=== PATIENT | male | born 1955 | race Caucasian/White ===

== ENCOUNTER 2017-10-26 14:29 | Inpatient (IN) | payer SELFPAY ==
[~2017-10-26] VITALS: Ht 172.7 cm; Wt 162.4 kg
[2017-10-26] MEDS ORDERED: SODIUM CHLORIDE 0.9% 1000ML 1,000 ML ONE (15:11)
[2017-10-26 15:49] LABS: BASOPHILS # (AUTO) 0.1 (0.0-0.1); BASOPHILS % 0.7 % (0.0-1.0); EOSINOPHILS # (AUTO) 0.2 (0.0-0.4); EOSINOPHILS % 2.2 % (0.0-6.0); HEMATOCRIT 41.6 % (38.2-49.6); HEMOGLOBIN 13.2 g/dL (14.0-18.0); MEAN CORPUSCULAR HEMOGLOBIN 28.8 pg (28-32); MEAN CORPUSCULAR HGB CONC 31.7 g/dL (31-35); MEAN CORPUSCULAR VOLUME 90.8 fL (81-99); MONOCYTES # (AUTO) 0.7 (0.2-0.8); MONOCYTES % 7.3 % (4.4-11.3); NEUTROPHILS % 66.3 % (38.7-80.0); PLATELET COUNT 163 x10e3/uL (140-360); RED BLOOD COUNT 4.58 x10e6/uL (4.3-5.7); RED CELL DISTRIBUTION WIDTH 15.4 % (11.7-14.4)
--- NOTE | 2017-10-26 15:52 | Diagnostic Imaging Report ---
Exam: Head CT without contrast History: Drowsiness, weakness Comparison studies: None Technique: Axial images were obtained from the skull base to the vertex. Coronal and sagittal images reconstructed from the axial data. Intravenous contrast: None Findings: Scalp: No abnormalities. Bones: No fractures, blastic or lytic lesions. Brain sulci: Appropriate for age. Ventricles: Normal in size and configuration. No hydrocephalus. Extra-axial spaces: No masses, no fluid collection. Parenchyma: No abnormal densities. No masses, acute hemorrhage, acute or chronic vascular insults. Sellar/suprasellar region: No abnormalities. Craniocervical junction: Patent foramen magnum. No Chiari one malformation. Incidental findings: Atherosclerotic calcifications in the carotid siphons. IMPRESSION: No acute intracranial abnormalities. Signed by: Dr. Kuldip Trivedi M.D. on 10/26/2017 3:48 PM
[2017-10-26 15:57] LABS: ABG HCO3 37 mmol/L (23-28); ABG PCO2 78 mmHg (41-51); ABG PH 7.28 (7.31-7.41); ABG PO2 78 mmHg (80-105)
[2017-10-26 16:00] LABS: INR 1.14; PROTHROMBIN TIME 13.7 seconds (11.9-14.5)
[2017-10-26 16:01] LABS: PARTIAL THROMBOPLASTIN TIME 26.3 seconds (23.8-35.5)
[2017-10-26 16:05] LABS: ALBUMIN 2.8 g/dL (3.5-5.0); ALBUMIN/GLOBULIN RATIO 0.7 (0.8-2.0); ANION GAP 10.9 mmol/L (8-16); CALCIUM 9.3 mg/dL (8.4-10.2); CREATININE, SERUM 1.47 mg/dL (0.72-1.25); POTASSIUM 4.9 mmol/L (3.5-5.1)
--- NOTE | 2017-10-26 16:10 | Diagnostic Imaging Report ---
PROCEDURE: A single AP view of the chest. COMPARISON: None. INDICATIONS: WEAKNESS, ELEVATED BLOOD SUGAR FINDINGS: Exam limited by soft tissue attenuation, likely from large body habitus. Lines/tubes: None. Lungs: Mildly hypoinflated lungs. Minimal atelectatic changes in the lung bases. No consolidation or pulmonary edema.. Pleura: There is no pleural effusion or pneumothorax. Likely eventration of the right hemidiaphragm. Heart and mediastinum: Prominent cardiac silhouette, which may be partly due to AP projection. Central pulmonary vascular crowding, likely due to the low lung volumes. Bones: No acute bony abnormality. IMPRESSION: 1. mildly hypoinflated lungs. Prominent cardiac silhouette, which may be partly due to AP projection and central vascular crowding due to low lung volumes. No consolidation or pleural effusion. Bharathi Price M.D. Dictated by: Bharathi Price M.D. on 10/26/2017 at 16:11 Electronically approved by: Bharathi Price M.D. on 10/26/2017 at 16:11
[2017-10-26 16:14] LABS: CREATINE KINASE MB 6.8 ng/mL (0-5.0)
[2017-10-26] MEDS ORDERED: NALOXONE HCL INJ 0.4 MG/ML AMP IV ONE (16:15)
[2017-10-26] MEDS ORDERED: SODIUM CHLORIDE 0.9% 1000ML 1,000 ML IV ONE (16:15)
[2017-10-26] MEDS ORDERED: ALBUTEROL/IPRATROPIUM 3 ML NEB NEB ONE (16:15)
[2017-10-26] MEDS ORDERED: INSULIN REGULAR, HUMAN 100 UNIT/1 ML 3ML VIAL IV ONE (16:15)
[2017-10-26] MEDS ORDERED: HYDRALAZINE HCL 20 MG/ML VIAL IV ONE (16:15)
[2017-10-26] MEDS ORDERED: SODIUM CHLORIDE 0.9% 1000ML 1,000 ML IV SCH (16:22)
[2017-10-26] MEDS ORDERED: SODIUM CHLORIDE FLUSH 10 ML SYR INJ PRN (16:30)
[2017-10-26 16:43] LABS: CHOL/HDL RATIO 4.6 (3.9-4.7); MAGNESIUM 1.8 MG/DL (1.3-2.1); PHOSPHORUS 4.1 MG/DL (2.3-4.7)
--- OUTSIDE RECORDS SUMMARY | 2017-10-26 16:44 | XMS REPORT ---
Author [facility] Address Unknown Phone Unavailable Care Team Providers Care Rotary Drier Name Role Phone LIZZETH CHUCHO Unavailable Unavailable Problems This patient has no known problems. Allergies, Adverse Reactions, Alerts This patient has no known allergies or adverse reactions. Medications This patient has no known medications. Encounters Start Date/Time End Date/Time Encounter Type Admission Type Attending [facility] Care Department Encounter ID 2017-10-26 12:38:28 2017-10-26 12:38:28 Outpatient [facility] [id number] 2017-10-26 00:00:00 2017-10-26 00:00:00 Outpatient [facility] [id number] 2017-10-07 16:10:53 2017-10-07 16:10:53 Emergency [facility] [id number] 2017-10-07 13:55:59 2017-10-07 13:55:59 Emergency [facility] [id number] 2017-07-23 00:00:00 2017-07-23 00:00:00 Outpatient [facility] [id number] 2017-06-24 08:13:06 2017-06-24 08:13:06 Outpatient [facility] [id number] 2017-06-23 00:00:00 2017-06-23 00:00:00 Outpatient [facility] [id number] 2017-06-09 00:00:00 2017-06-09 00:00:00 Outpatient [facility] [id number] 2017-06-01 09:28:59 2017-06-01 09:28:59 Outpatient [facility] [id number] 2017-05-22 02:58:32 2017-05-22 02:58:32 Emergency [facility] [id number] 2017-05-22 02:23:38 2017-05-22 02:23:38 Emergency [facility] [id number] 2017-05-15 09:09:29 2017-05-15 09:09:29 Outpatient [facility] [id number] 2017-05-14 00:00:00 2017-05-14 00:00:00 Outpatient [facility] [id number] 2017-05-14 00:00:00 2017-05-14 00:00:00 Outpatient [facility] [id number] 2017-04-30 08:39:59 2017-04-30 08:39:59 Outpatient [facility] [id number] 2017-04-30 07:10:57 2017-04-30 07:10:57 Outpatient [facility] [id number] 2017-04-30 00:00:00 2017-04-30 00:00:00 Outpatient [facility] [id number] 2017-04-30 00:00:00 2017-04-30 00:00:00 Outpatient [facility] [id number] 2017-04-23 08:22:20 2017-04-23 08:22:20 Outpatient [facility] [id number] 2017-04-23 00:00:00 2017-04-23 00:00:00 Outpatient [facility] [id number] 2017-04-23 00:00:00 2017-04-23 00:00:00 Outpatient [facility] [id number] 2017-04-23 00:00:00 2017-04-23 00:00:00 Outpatient [facility] [id number] 2017-04-23 00:00:00 2017-04-23 00:00:00 Outpatient [facility] [id number] 2017-04-22 00:00:00 2017-04-22 00:00:00 Outpatient [facility] [id number] 2017-04-20 08:01:35 2017-04-20 08:01:35 Outpatient [facility] [id number] 2017-04-13 10:29:27 2017-04-13 10:29:27 Outpatient [facility] [id number] 2017-03-31 08:01:25 2017-03-31 08:01:25 Outpatient [facility] [id number] 2017-03-26 08:05:31 2017-03-26 08:05:31 Outpatient [facility] [id number] 2017-03-23 08:25:05 2017-03-23 08:25:05 Outpatient [facility] [id number] 2017-03-09 08:24:29 2017-03-09 08:24:29 Outpatient [facility] [id number] 2017-03-05 08:45:52 2017-03-05 08:45:52 Outpatient [facility] [id number] 2017-03-05 07:43:16 2017-03-05 07:43:16 Outpatient [facility] [id number] 2017-02-26 00:00:00 2017-02-26 00:00:00 Outpatient [facility] [id number] 2017-02-23 11:02:09 2017-02-23 11:02:09 Outpatient [facility] [id number] 2017-02-23 08:40:26 2017-02-23 08:40:26 Outpatient [facility] [id number] 2017-02-11 00:00:00 2017-02-11 00:00:00 Outpatient [facility] [id number] 2017-02-10 09:48:28 2017-02-10 09:48:28 Outpatient [facility] [id number] 2017-02-01 00:00:00 2017-02-01 00:00:00 Outpatient [facility] [id number] 2017-01-21 10:04:23 2017-01-21 10:04:23 Outpatient [facility] [id number] 2017-01-14 11:04:20 2017-01-14 11:04:20 Outpatient [facility] [id number] Results Test Description Test Time Test Comments Text Results Atomic Results Result Comments CHEST SINGLE (PORTABLE) [place] [address] Patient Name: GLORIA RAJAN MR #: [id number] : 1955 Age/Sex: 62/M Req #: [id number] Adm Physician: Ordered by: CHUCHO MOREAU MD Report #: [id number] Location: ER Room/Bed: Procedure: [id number] DX/CHEST SINGLE (PORTABLE) Exam Date: 10/26/17 Exam Time: 1530 REPORT STATUS: Signed PROCEDURE: A single AP view of the chest. COMPARISON: None. INDICATIONS: WEAKNESS, ELEVATED BLOOD SUGAR FINDINGS: Exam limited by soft tissue attenuation, likely from large body habitus. Lines/tubes: None. Lungs: Mildly hypoinflated lungs. Minimal atelectatic changes in the lung bases. No consolidation or pulmonary edema.. Pleura: There is no pleural effusion or pneumothorax. Likely eventration of the right hemidiaphragm. Heart and mediastinum: Prominent cardiac silhouette, which may be partly due to AP projection. Central pulmonary vascular crowding, likely due to the low lung volumes. Bones: No acute bony abnormality. IMPRESSION: 1. mildly hypoinflated lungs. Prominent cardiac silhouette, which may be partly due to AP projection and central vascular crowding due to low lung volumes. No consolidation or pleural effusion. Abby Price M.D. Dictated by: Abby Price M.D. on 10/26/2017 at 16:11 Electronically approved by: Abby Price M.D. on 10/26/2017 at 16:11 Dictated By: ABBY PRICE MD 161 Transcribed By: PETR on 10/26/17 1611 COPY TO: CHUCHO MOREAU MD CT BRAIN WO [place] [address] Patient Name: GLORIA RAJAN MR #: [id number] : 1955 Age/Sex: 62/M Req #: [id number] Adm Physician: Ordered by: CHUCHO MOREAU MD Report #: [id number] Location: ER Room/Bed: Procedure: [id number] CT/CT BRAIN WO Exam Date: 10/26/17 Exam Time: 1518 REPORT STATUS: Signed Exam: Head CT without contrast History: Drowsiness, weakness Comparison studies: None Technique: Axial images were obtained from the skull base to the vertex. Coronal and sagittal images reconstructed from the axial data. Intravenous contrast: None Findings: Scalp: No abnormalities. Bones: No fractures, blastic or lytic lesions. Brain sulci: Appropriate for age. Ventricles: Normal in size and configuration. No hydrocephalus. Extra-axial spaces: No masses, no fluid collection. Parenchyma: No abnormal densities. No masses, acute hemorrhage, acute or chronic vascular insults. Sellar/suprasellar region: No abnormalities. Craniocervical junction: Patent foramen magnum. No Chiari one malformation. Incidental findings: Atherosclerotic calcifications in the carotid siphons. IMPRESSION: No acute intracranial abnormalities. Signed by: Dr. Mikey Trivedi M.D. on 10/26/2017 3:48 PM Dictated By: MIKEY TRIVEDI MD 1548 Transcribed By: MIR on 10/26/17 1548 COPY TO: CHUCHO MOREAU MD
[2017-10-26] MEDS ORDERED: SPIRONOLACTONE25 MG PO (16:50)
[2017-10-26] MEDS ORDERED: VENTOLIN HFA18 GM INH (16:50)
[2017-10-26] MEDS ORDERED: LASIX40 MG PO (16:50)
[2017-10-26] MEDS ORDERED: PREVACID15 M1 (16:50)
[2017-10-26] MEDS ORDERED: SYNTHROID100 MCG PO (16:50)
[2017-10-26] MEDS ORDERED: METOPROLOL SUCC25 MG (16:50)
[2017-10-26] MEDS ORDERED: GABAPENTIN300 MG PO (16:50)
[2017-10-26] MEDS ORDERED: HUMULIN 70100 UNIT/1 (16:50)
[2017-10-26 17:03] LABS: THYROID STIMULATING HORMONE 3.579 uIU/mL (0.350-4.940)
[2017-10-26 17:40] VITALS: BP 160/91
[2017-10-26 17:52] VITALS: BP 152/89
[2017-10-26 17:57] VITALS: BP 160/91
[2017-10-26] MEDS ORDERED: DEXTROSE 50% SYRINGE 50 ML IV PRN (18:30)
[2017-10-26] MEDS: INSULIN REGULAR, HUMAN 100 UNIT/1 ML 3ML VIAL SQ SCH (20:51)
[2017-10-26] MEDS ORDERED: LIPITOR20 MG (21:23)
[2017-10-26] MEDS ORDERED: ASPIR 8181 MG (21:26)
[2017-10-26] MEDS ORDERED: FUROSEMIDE INJ 10 MG/ML 4 ML VIAL IV ONE (22:15)
[2017-10-26] MEDS: PIPER-TAZ 3.375 GM 50 ML IV SCH (22:15)
[2017-10-26] MEDS ORDERED: FUROSEMIDE INJ 10 MG/ML 10 ML VIAL ONE (22:19)
[2017-10-26] MEDS ORDERED: VANCOMYCIN 1GM/NS 250 ML 250 ML IV ONE (22:30)
[2017-10-26 23:02] LABS: ABG PCO2 78 mmHg (41-51)
[2017-10-26 23:03] LABS: ABG HCO3 39 mmol/L (23-28); ABG PO2 118 mmHg (80-105)
[2017-10-26 23:47] LABS: AMPHETAMINES SCREEN,URINE NEGATIVE (NEGATIVE); BENZODIAZEPINES SCREEN,URINE NEGATIVE (NEGATIVE); PHENCYCLIDINE SCREEN,URINE NEGATIVE (NEGATIVE)
[2017-10-27] VITALS (72 sets, daily range): BP systolic 100–165; BP diastolic 39–88
[2017-10-27 01:39] LABS: ABG PCO2 89 mmHg (41-51); ABG PH 7.27 (7.31-7.41)
[2017-10-27 01:40] LABS: ABG HCO3 41 mmol/L (23-28); ABG PO2 98 mmHg (80-105)
[2017-10-27] MEDS: INSULIN REGULAR, HUMAN 100 UNIT/1 ML 3ML VIAL SQ SCH ×3 (02:18→17:13)
[2017-10-27 02:27] LABS: HEMATOCRIT 41.7 % (38.2-49.6); HEMOGLOBIN 13.2 g/dL (14.0-18.0); MEAN CORPUSCULAR HEMOGLOBIN 28.6 pg (28-32); MEAN CORPUSCULAR HGB CONC 31.7 g/dL (31-35); MEAN CORPUSCULAR VOLUME 90.3 fL (81-99); PLATELET COUNT 191 x10e3/uL (140-360); RED BLOOD COUNT 4.62 x10e6/uL (4.3-5.7); RED CELL DISTRIBUTION WIDTH 15.2 % (11.7-14.4)
[2017-10-27 02:41] LABS: INR 1.11; PROTHROMBIN TIME 13.5 seconds (11.9-14.5)
[2017-10-27 02:42] LABS: PARTIAL THROMBOPLASTIN TIME 28.2 seconds (23.8-35.5)
[2017-10-27 02:51] LABS: ALANINE AMINOTRANSFERASE 19 IU/L (0-55); ALBUMIN 2.7 g/dL (3.5-5.0); ALBUMIN/GLOBULIN RATIO 0.6 (0.8-2.0); ALKALINE PHOSPHATASE 75 IU/L (40-150); ANION GAP 12.8 mmol/L (8-16); BLOOD UREA NITROGEN 24 mg/dL (7-26); BUN/CREATININE RATIO 20 (6-25); CALCIUM 9.3 mg/dL (8.4-10.2); CARBON DIOXIDE 37 mmol/L (22-29); CHLORIDE 100 mmol/L (98-107); CREATININE, SERUM 1.21 mg/dL (0.72-1.25); EST GLOMERULAR FILTRATION RATE > 60 ML/MIN (60-); GLUCOSE 178 mg/dL (74-118); POTASSIUM 4.8 mmol/L (3.5-5.1)
[2017-10-27 02:55] LABS: SODIUM 145 mmol/L (136-145)
[2017-10-27] MEDS ORDERED: PROPOFOL IV EMULSION 10 MG/ML 50 ML VIAL IV PRN (03:30)
[2017-10-27] MEDS ORDERED: PROPOFOL IV EMULSION 10MG/ML 100 ML ONE ×2 (03:34→05:46)
[2017-10-27] MEDS ORDERED: NOREPINEPHRINE BITARTRATE/ NS 250 ML ONE (04:09)
[2017-10-27] MEDS ORDERED: SODIUM CHLORIDE 0.9% 1000ML 1,000 ML ONE (04:10)
--- NOTE | 2017-10-27 04:18 | Diagnostic Imaging Report ---
EXAM: CHEST SINGLE (PORTABLE), AP 1 view INDICATION: Status post intubation COMPARISON: AP view of the chest October 26, 2017 at 1532 hours FINDINGS: LINES/TUBES: Endotracheal tube terminates 4 cm above the kelli LUNGS: Stable appearance of the lungs with vascular congestion. PLEURA: No effusions or pneumothorax. HEART AND MEDIASTINUM: Stable appearance. BONES AND SOFT TISSUES: No acute findings. IMPRESSION: Interval placement of endotracheal tube, otherwise no interval change in appearance of the chest. Signed by: Dr. Maris Ramos M.D. on 10/27/2017 4:14 AM
[2017-10-27] MEDS ORDERED: FENTANYL CITRATE INJ 2,000 MCG in SODIUM CHLORIDE 0.9% 250ML 210 ML IV PRN (04:30)
[2017-10-27] MEDS ORDERED: NOREPINEPHRINE BITARTRATE/ NS 250 ML IV PRN (04:30)
[2017-10-27 04:52] LABS: ABG PH 7.44 (7.31-7.41)
[2017-10-27 04:53] LABS: ABG HCO3 40 mmol/L (23-28); ABG PCO2 59 mmHg (41-51); ABG PO2 109 mmHg (80-105)
[2017-10-27] MEDS: PIPER-TAZ 3.375 GM 50 ML IV SCH ×3 (06:00→21:20)
[2017-10-27] MEDS: LEVOTHYROXINE SODIUM 100 MCG TAB PO SCH (06:00)
[2017-10-27] MEDS ORDERED: VANCOMYCIN 1GM/NS 250 ML 250 ML ONE (06:58)
[2017-10-27] MEDS ORDERED: PROPOFOL IV EMULSION 10MG/ML 100 ML IV PRN (07:30)
--- NOTE | 2017-10-27 07:51 | Diagnostic Imaging Report ---
PROCEDURE: CHEST XRAY LINE PLACEMENT COMPARISON: Earlier 10/27/2017. INDICATIONS: PICC LINE PLACEMENT FINDINGS: Endotracheal tube is unchanged in position. Interval placement of a right upper extremity PICC. The tip projects over the expected region of the superior cavoatrial junction. Lung volumes remain low with pulmonary venous congestion. No new consolidation. No acute osseous abnormality. CONCLUSION: Interval placement of a right upper extremity PICC, appropriately positioned as above. Otherwise stable chest relative to 10/27/2017 at 0352 hours. Dictated by: Kuldip Britt M.D. on 10/27/2017 at 7:51 Electronically approved by: Kuldip Britt M.D. on 10/27/2017 at 7:51
[2017-10-27] MEDS: MIDAZOLAM HCL 25 MG in SODIUM CHLORIDE 0.9% 50ML 45 ML IV PRN ×3 (08:14→19:00)
[2017-10-27] MEDS ORDERED: GABAPENTIN 300 MG CAP PO SCH (09:00)
[2017-10-27 09:32] LABS: MAGNESIUM 1.6 MG/DL (1.3-2.1); PHOSPHORUS 4.1 MG/DL (2.3-4.7)
--- NOTE | 2017-10-27 09:57 | Consultation ---
DATE OF CONSULTATION: October 27, 2017 CARDIOLOGY CONSULTATION REASON FOR CONSULTATION: CHF. HPI: This is a 62-year-old morbidly obese male that presented with confusion. According to the medical record and the ER report and the bedside nurse, he was at his regular appointment at the [facility], but was found sleepy in the lobby. They checked his blood sugar and found out it was 536. He was sent over here for evaluation. In the ER, he was confused, combative. They did an ABG and found out the CO2 was in the 80s. He was intubated to protect the airway. Blood pressure was also low. He was started on Levophed drip and transferred to the ICU for vent management. He is intubated and sedated, and not able to follow any commands or verbalize any need. Initial troponin was negative. EKG showed normal sinus rhythm with no S/T abnormalities. The BNP was 69. PAST MEDICAL HISTORY: Hypertension, diabetes, uncontrolled, COPD, CHF, PA, hyperlipidemia, morbid obesity, pressure ulcer on the sacrum and on the left heel, and noncompliant. PAST SURGICAL HISTORY: Hernia repair. FAMILY HISTORY: Positive for hypertension and diabetes. SOCIAL HISTORY: Unable to obtain. According to the bedside nurse, he lives at home by himself and uses home oxygen. MEDICATIONS: See med list. ALLERGIES: HE IS ALLERGIC TO PENICILLIN AND LOSARTAN. REVIEW OF SYSTEMS: Unable to obtain. He is intubated and sedated. PHYSICAL EXAMINATION VITAL SIGNS: Temperature 99.5, heart rate 76, blood pressure 116/72, respirations 30, oxygen saturation 99% on mechanical ventilator. GENERAL: He is morbidly obese, intubated and sedated. HEENT: Mucous membrane moist. NECK: Supple. LUNGS: Bilateral with decreased breath sounds. CARDIOVASCULAR: S1 and S2 present. ABDOMEN: Soft. NEUROLOGICAL: He is sedated. EXTREMITIES: Bilateral lower with trace edema. LABS: Sodium 145, potassium 4.8, chloride 100, CO2 37, BUN 24, creatinine 1.21, glucose 178. White blood cell 10, hemoglobin 13.2, hematocrit 41.7, and platelets 191,000. PTT 13.5, PTT 28.2 and INR 1.11. IMPRESSION 1. Respiratory failure. 2. Chronic obstructive pulmonary disease exacerbation. 3. Uncontrolled diabetes. 4. Fever. 5. Possible congestive heart failure. 6. Pressure ulcer on the sacrum. 7. Obesity. 8. Hypothyroidism. 9. Noncompliant. ASSESSMENT AND PLAN 1. His BNP is 69. He has no clinical symptoms of congestive heart failure. Will go ahead and get an echocardiogram to assess the left ventricular and the valve function. 2. Continue vent management per pulmonology. 3. His blood pressure has been stable, and he has been off Levophed drip. 4. Will continue glucose control. 5. His blood pressure and heart rate are stable. 6. Resume home medications. Further cardiac workup pending clinical course. Thank you for this consultation. DICTATED BY MARIAN BLOOM NP Job#: [id number] GRETEL
[2017-10-27] MEDS ORDERED: HYDROMORPHONE 20MG/ NS 100ML IV PRN (10:30)
[2017-10-27] MEDS ORDERED: FUROSEMIDE INJ 10 MG/ML 4 ML VIAL IV ONE (10:35)
[2017-10-27] MEDS: HYDROMORPHONE 100 ML IV PRN (11:22)
--- NOTE | 2017-10-27 17:22 | Diagnostic Imaging Report ---
PROCEDURE:X-RAY ABDOMEN - KUB COMPARISON:Chest x-ray 10/27/2017 7:39 am INDICATIONS:STATUS POST NASOGASTRIC TUBE PLACEMENT FINDINGS: Partially visualized endotracheal tube. Additional tube is seen coiled in the mid thoracic esophagus. Limited penetration of the abdomen. There are no dilated loops of bowel to suggest obstruction. There are no masses or abnormal calcifications. There is no evidence of free air. No acute osseous abnormalities are present. CONCLUSION: NG tube coiled in the midesophagus. Dictated by: Zach Adkins M.D. on 10/27/2017 at 17:22 Electronically approved by: Zach Adkins M.D. on 10/27/2017 at 17:22
[2017-10-27] MEDS ORDERED: ETOMIDATE 40 MG/ 20ML VIAL IV ONE (18:13)
[2017-10-27] MEDS ORDERED: SUCCINYLCHOLINE 200 MG/10 ML SYR ONE (18:13)
--- NOTE | 2017-10-27 18:16 | Diagnostic Imaging Report ---
PROCEDURE:X-RAY ABDOMEN - KUB COMPARISON:None. INDICATIONS:NGT PLACEMENT FINDINGS: NG tube is seen in the stomach. Diffuse soft tissue attenuation abdomen. There are no dilated loops of bowel to suggest obstruction. There are no masses or abnormal calcifications. There is no evidence of free air. No acute osseous abnormalities are present. CONCLUSION: NG tube is seen in the stomach. Dictated by: Zach Adkins M.D. on 10/27/2017 at 18:16 Electronically approved by: Zach Adkins M.D. on 10/27/2017 at 18:16
[2017-10-27] MEDS: ALBUTEROL/IPRATROPIUM 3 ML NEB NEB PRN (19:45)
[2017-10-27] MEDS ORDERED: ATROPINE SULFATE 0.1 MG/ML 10ML SYR ONE (19:53)
[2017-10-28] VITALS (73 sets, daily range): BP systolic 105–158; BP diastolic 61–122
[2017-10-28] MEDS: HYDROMORPHONE 100 ML IV PRN ×2 (01:30→22:18)
[2017-10-28] MEDS: MIDAZOLAM HCL 25 MG in SODIUM CHLORIDE 0.9% 50ML 45 ML IV PRN (01:30)
[2017-10-28] MEDS: INSULIN REGULAR, HUMAN 100 UNIT/1 ML 3ML VIAL SQ SCH ×4 (04:59→18:00)
[2017-10-28] MEDS: LEVOTHYROXINE SODIUM 100 MCG TAB PO SCH (04:59)
[2017-10-28] MEDS: PIPER-TAZ 3.375 GM 50 ML IV SCH ×3 (05:00→21:19)
--- NOTE | 2017-10-28 05:28 | Diagnostic Imaging Report ---
EXAM: CHEST SINGLE (PORTABLE), AP 1 view INDICATION: Intubated COMPARISON: AP view of the chest October 27, 2017 FINDINGS: LINES/TUBES: Stable position of endotracheal tube and right approach PICC. A nasal/orogastric tube courses below the diaphragm. LUNGS: Stable appearance of the lungs. PLEURA: No effusions or pneumothorax. HEART AND MEDIASTINUM: Stable BONES AND SOFT TISSUES: No acute findings. IMPRESSION: No interval change. Signed by: Dr. Maris Ramos M.D. on 10/28/2017 5:24 AM
[2017-10-28 05:34] LABS: BASOPHILS % 0.3 % (0.0-1.0); EOSINOPHILS # (AUTO) 0.3 (0.0-0.4); HEMATOCRIT 39.8 % (38.2-49.6); HEMOGLOBIN 12.3 g/dL (14.0-18.0); LYMPHOCYTES # (AUTO) 1.9 (1.0-3.2); LYMPHOCYTES % 22.3 % (18.0-39.1); MEAN CORPUSCULAR HEMOGLOBIN 28.6 pg (28-32); MEAN CORPUSCULAR HGB CONC 30.9 g/dL (31-35); MEAN CORPUSCULAR VOLUME 92.6 fL (81-99); MONOCYTES # (AUTO) 0.6 (0.2-0.8); MONOCYTES % 7.2 % (4.4-11.3); NEUTROPHILS # (AUTO) 5.6 (2.1-6.9); NEUTROPHILS % 64.9 % (38.7-80.0); PLATELET COUNT 160 x10e3/uL (140-360); RED CELL DISTRIBUTION WIDTH 15.8 % (11.7-14.4)
[2017-10-28 05:56] LABS: ALBUMIN 2.2 g/dL (3.5-5.0); ALBUMIN/GLOBULIN RATIO 0.6 (0.8-2.0); ANION GAP 11.1 mmol/L (8-16); CALCIUM 8.4 mg/dL (8.4-10.2); CREATININE, SERUM 1.63 mg/dL (0.72-1.25); POTASSIUM 4.1 mmol/L (3.5-5.1)
[2017-10-28] MEDS: VANCOMYCIN 1GM/NS 250 ML 250 ML IV SCH (09:34)
[2017-10-28 10:48] LABS: ABG HCO3 34 mmol/L (23-28); ABG PCO2 66 mmHg (41-51); ABG PH 7.33 (7.31-7.41); ABG PO2 55 mmHg (80-105)
[2017-10-28] MEDS: DEXMEDETOMIDINE HCL 200 MCG in SODIUM CHLORIDE 0.9% 50ML 48 ML IV PRN ×3 (12:07→23:34)
[2017-10-28] MEDS: SODIUM CHLORIDE 0.9% 1000ML 1,000 ML IV SCH (12:08)
[2017-10-28] MEDS ORDERED: ACETAMINOPHEN 325 MG/10 ML UDC NG PRN (13:30)
[2017-10-28] MEDS ORDERED: ACETAMINOPHEN 1000 MG/100 ML IV PRN (13:30)
[2017-10-28] MEDS ORDERED: SODIUM CHLORIDE 0.9% 1000ML 1,000 ML ONE (15:18)
[2017-10-28] MEDS: HEPARIN SOD (PORCINE) 5,000 UNIT/ML VIAL SC SCH (21:00)
[2017-10-29] VITALS (79 sets, daily range): BP systolic 98–169; BP diastolic 63–101
[2017-10-29] MEDS: SODIUM CHLORIDE 0.9% 1000ML 1,000 ML IV SCH (00:49)
[2017-10-29] MEDS ORDERED: SODIUM CHLORIDE 0.9% 500ML 500 ML IV ONE (01:45)
[2017-10-29] MEDS: DEXMEDETOMIDINE HCL 200 MCG in SODIUM CHLORIDE 0.9% 50ML 48 ML IV PRN ×3 (04:50→23:41)
[2017-10-29] MEDS: INSULIN REGULAR, HUMAN 100 UNIT/1 ML 3ML VIAL SQ SCH ×5 (06:00→23:15)
[2017-10-29 06:02] LABS: BASOPHILS % 0.2 % (0.0-1.0); EOSINOPHILS # (AUTO) 0.3 (0.0-0.4); EOSINOPHILS % 2.6 % (0.0-6.0); HEMATOCRIT 40.6 % (38.2-49.6); HEMOGLOBIN 12.9 g/dL (14.0-18.0); LYMPHOCYTES # (AUTO) 1.6 (1.0-3.2); LYMPHOCYTES % 16.8 % (18.0-39.1); MEAN CORPUSCULAR HEMOGLOBIN 28.7 pg (28-32); MEAN CORPUSCULAR HGB CONC 31.8 g/dL (31-35); MEAN CORPUSCULAR VOLUME 90.2 fL (81-99); MONOCYTES # (AUTO) 0.7 (0.2-0.8); MONOCYTES % 6.9 % (4.4-11.3); NEUTROPHILS # (AUTO) 7.1 (2.1-6.9); NEUTROPHILS % 72.5 % (38.7-80.0); PLATELET COUNT 140 x10e3/uL (140-360); RED CELL DISTRIBUTION WIDTH 15.4 % (11.7-14.4)
[2017-10-29] MEDS: HYDROMORPHONE 100 ML IV PRN (06:11)
[2017-10-29] MEDS: PIPER-TAZ 3.375 GM 50 ML IV SCH ×3 (06:12→21:29)
[2017-10-29] MEDS: LEVOTHYROXINE SODIUM 100 MCG TAB PO SCH (06:12)
--- NOTE | 2017-10-29 06:22 | Diagnostic Imaging Report ---
EXAM: CHEST SINGLE (PORTABLE), AP 1 view INDICATION: Intubated COMPARISON: AP view of the chest October 28, 2017 FINDINGS: LINES/TUBES: Stable appearance of endotracheal tube, nasogastric/orogastric tube and right approach PICC. LUNGS: Stable appearance of the lungs with vascular congestion and bibasilar atelectasis. Possible pulmonary edema. PLEURA: Possible trace bilateral pleural effusions. HEART AND MEDIASTINUM: Stable appearance. BONES AND SOFT TISSUES: No acute findings. IMPRESSION: No interval change. Signed by: Dr. Maris Ramos M.D. on 10/29/2017 6:19 AM
[2017-10-29 06:42] LABS: ANION GAP 13.1 mmol/L (8-16); CALCIUM 8.4 mg/dL (8.4-10.2); CREATININE, SERUM 1.61 mg/dL (0.72-1.25); POTASSIUM 4.1 mmol/L (3.5-5.1)
[2017-10-29] MEDS: VANCOMYCIN 1GM/NS 250 ML 250 ML IV SCH (08:44)
[2017-10-29 09:00] LABS: ABG HCO3 31 mmol/L (23-28); ABG PCO2 64 mmHg (41-51); ABG PO2 101 mmHg (80-105)
[2017-10-29] MEDS: HEPARIN SOD (PORCINE) 5,000 UNIT/ML VIAL SC SCH ×2 (09:46→21:29)
[2017-10-29] MEDS: BALSAM PERU/CASTOR OIL 60 GM OINT...G. TP SCH (09:47)
--- NOTE | 2017-10-29 14:38 | Consultation ---
DATE OF CONSULTATION: REASON FOR CONSULTATION: Fever. HISTORY OF PRESENT ILLNESS: This is a 62-year-old white male, morbidly obese patient, with history of COPD, history of hypertension, history of congestive heart failure, known to me from before. Noncompliance. He was recently in [facility]. Patient apparently was recently at [facility] [address]. He was found sleeping in the lobby. His blood glucose was 536. Patient was sent to the emergency room. In the emergency room, he was confused and combative. His CO2 was in the 80s. He was intubated. The blood pressure was low. He was transferred to the intensive care unit. He started to have fever and chills. Infectious disease was consulted. Cardiology was consulted. Critical care was consulted. The patient is currently intubated and sedated, does not provide any meaningful information. There is really no family at the present time. 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 He also has a pressure ulcer on the left heel. PAST SURGICAL HISTORY: Hernia repair. ALLERGIES: NKA. SOCIAL HISTORY: No smoking, drug abuse or alcohol abuse. ALLERGIES: PENICILLIN AND LOSARTAN, BUT HE IS TOLERATING WELL THE ZOSYN. REVIEW OF SYSTEMS: Could not be obtained. LABORATORY DATA: Reviewed. The blood cultures are negative at 48 hours. White count on admission was 9.04 and has remained about the same level. Hemoglobin is 13.2, hematocrit 41, platelets of 163. Sodium 143, potassium 4.1, creatinine 1.63 on admission. MEDICATIONS: He is currently on insulin, vancomycin and Zosyn. PHYSICAL EXAMINATION GENERAL: He is intubated and sedated. Currently, there is no fever, but he had been running fever up to 102.5 actually yesterday. HEENT: Normocephalic. NECK: No JVD, hard to assess. CHEST: A few crackles anteriorly. COR: S1, S2. ABDOMEN: Soft. IMPRESSION 1. Fever. I think the patient has probably aspiration pneumonia. Agree with current choice of antibiotic since it is healthcare associated. He was recently in the hospital. If he continues to have fever, then reassess. Currently, there is no diarrhea. His fever today is none. 2. Respiratory failure. 3. Morbidly obese patient. 4. Diabetes mellitus, not controlled. 5. Chronic kidney disease. 6. From an infectious disease point of view, continue with the current choice of antibiotic. Check vancomycin trough. Will see how he is going to do over the next 24 hours. Will follow with you. Job#: [id number]
[2017-10-29] MEDS ORDERED: MIDAZOLAM HCL 2 MG/2 ML VIAL ONE (18:10)
[2017-10-29] MEDS ORDERED: PROPOFOL IV EMULSION 10MG/ML 0 ML ONE (18:11)
[2017-10-29 18:15] LABS: ABG HCO3 30 mmol/L (23-28); ABG PCO2 50 mmHg (41-51); ABG PH 7.38 (7.31-7.41); ABG PO2 92 mmHg (80-105)
[2017-10-29 18:17] LABS: ABG PH 7.12 (7.31-7.41)
[2017-10-29 18:18] LABS: ABG HCO3 24 mmol/L (23-28); ABG PCO2 74 mmHg (41-51); ABG PO2 85 mmHg (80-105)
--- NOTE | 2017-10-29 18:44 | Diagnostic Imaging Report ---
PROCEDURE: A single AP view of the chest. COMPARISON: None. INDICATIONS: INTUBATION FINDINGS: LINES/TUBES: Stable appearance of endotracheal tube, nasogastric/orogastric tube and right approach PICC. LUNGS: Stable appearance of the lungs with vascular congestion and bibasilar atelectasis. Possible pulmonary edema. PLEURA: Possible trace bilateral pleural effusions. HEART AND MEDIASTINUM: Stable appearance. BONES AND SOFT TISSUES: No acute findings. IMPRESSION: No interval change. Dictated by: Loy Vigil M.D. on 10/29/2017 at 18:44 Electronically approved by: Loy Vigil M.D. on 10/29/2017 at 18:44
[2017-10-29] MEDS ORDERED: ASPIRIN 81 MG CHEW TAB PO ONE (19:00)
[2017-10-29 19:04] LABS: BASOPHILS # (AUTO) 0.1 (0.0-0.1); BASOPHILS % 0.3 % (0.0-1.0); EOSINOPHILS # (AUTO) 0.2 (0.0-0.4); EOSINOPHILS % 1.1 % (0.0-6.0); HEMATOCRIT 44.8 % (38.2-49.6); HEMOGLOBIN 13.8 g/dL (14.0-18.0); MEAN CORPUSCULAR HEMOGLOBIN 28.6 pg (28-32); MEAN CORPUSCULAR HGB CONC 30.8 g/dL (31-35); MEAN CORPUSCULAR VOLUME 92.8 fL (81-99); MONOCYTES # (AUTO) 1.5 (0.2-0.8); MONOCYTES % 6.8 % (4.4-11.3); NEUTROPHILS # (AUTO) 10.5 (2.1-6.9); NEUTROPHILS % 49.1 % (38.7-80.0); PLATELET COUNT 142 x10e3/uL (140-360); RED BLOOD COUNT 4.83 x10e6/uL (4.3-5.7); RED CELL DISTRIBUTION WIDTH 15.1 % (11.7-14.4)
[2017-10-29] MEDS ORDERED: HYDROMORPHONE 20MG/ NS 100ML IV PRN (19:15)
[2017-10-29 19:19] LABS: ANION GAP 20.9 mmol/L (8-16); CALCIUM 9.1 mg/dL (8.4-10.2); CREATININE, SERUM 1.94 mg/dL (0.72-1.25); POTASSIUM 3.9 mmol/L (3.5-5.1)
[2017-10-29 19:26] LABS: CREATINE KINASE MB 3.5 ng/mL (0-5.0)
[2017-10-29 20:12] LABS: EOSINOPHILS % (MANUAL) 1 % (0-7); LYMPHOCYTES % (MANUAL) 46 % (19-48); MONOCYTES % (MANUAL) 4 % (3.4-9.0); NEUTROPHILS % (MANUAL) 49 % (40-74); PLATELET ESTIMATE ADEQUATE; PLATELET MORPHOLOGY COMMENT NORMAL; RBC MORPHOLOGY COMMENT NORMAL
[2017-10-29] MEDS: MIDAZOLAM HCL 25 MG in SODIUM CHLORIDE 0.9% 50ML 45 ML IV PRN (21:36)
[2017-10-30] VITALS (94 sets, daily range): BP systolic 79–149; BP diastolic 32–109
[2017-10-30] MEDS: MIDAZOLAM HCL 25 MG in SODIUM CHLORIDE 0.9% 50ML 45 ML IV PRN ×5 (01:51→20:56)
[2017-10-30] MEDS: DEXMEDETOMIDINE HCL 200 MCG in SODIUM CHLORIDE 0.9% 50ML 48 ML IV PRN (02:43)
[2017-10-30] MEDS: INSULIN REGULAR, HUMAN 100 UNIT/1 ML 3ML VIAL SQ SCH ×4 (05:04→23:22)
[2017-10-30] MEDS: LEVOTHYROXINE SODIUM 100 MCG TAB PO SCH (05:41)
[2017-10-30] MEDS: PIPER-TAZ 3.375 GM 50 ML IV SCH ×3 (05:42→21:12)
[2017-10-30] MEDS ORDERED: SODIUM CHLORIDE 0.9% 1000ML 1,000 ML ONE (06:04)
--- NOTE | 2017-10-30 06:12 | Diagnostic Imaging Report ---
EXAM: CHEST SINGLE (PORTABLE), AP 1 view INDICATION: Intubated COMPARISON: AP view of the chest October 29, 2017 FINDINGS: LINES/TUBES: Stable endotracheal tube, nasal/orogastric tube and right approach PICC LUNGS: Stable appearance of the lungs. PLEURA: Indeterminate for bilateral layering pleural effusions. HEART AND MEDIASTINUM: Stable. BONES AND SOFT TISSUES: No acute findings. IMPRESSION: No interval change. Signed by: Dr. Maris Ramos M.D. on 10/30/2017 6:08 AM
[2017-10-30 06:52] LABS: BASOPHILS % 0.2 % (0.0-1.0); EOSINOPHILS # (AUTO) 0.3 (0.0-0.4); EOSINOPHILS % 3.1 % (0.0-6.0); HEMATOCRIT 38.4 % (38.2-49.6); LYMPHOCYTES # (AUTO) 1.6 (1.0-3.2); LYMPHOCYTES % 18.2 % (18.0-39.1); MEAN CORPUSCULAR HEMOGLOBIN 28.7 pg (28-32); MEAN CORPUSCULAR HGB CONC 31.3 g/dL (31-35); MEAN CORPUSCULAR VOLUME 91.9 fL (81-99); MONOCYTES # (AUTO) 0.6 (0.2-0.8); MONOCYTES % 6.9 % (4.4-11.3); NEUTROPHILS # (AUTO) 6.2 (2.1-6.9); NEUTROPHILS % 71.1 % (38.7-80.0); PLATELET COUNT 157 x10e3/uL (140-360); RED BLOOD COUNT 4.18 x10e6/uL (4.3-5.7); RED CELL DISTRIBUTION WIDTH 15.1 % (11.7-14.4)
[2017-10-30 07:13] LABS: ALBUMIN 1.9 g/dL (3.5-5.0); ALBUMIN/GLOBULIN RATIO 0.5 (0.8-2.0); ANION GAP 13.7 mmol/L (8-16); CALCIUM 8.8 mg/dL (8.4-10.2); CREATININE, SERUM 2.21 mg/dL (0.72-1.25); POTASSIUM 4.7 mmol/L (3.5-5.1)
[2017-10-30] MEDS: ALBUTEROL/IPRATROPIUM 3 ML NEB NEB PRN ×3 (07:20→22:40)
[2017-10-30] MEDS: HYDROMORPHONE 100 ML IV PRN (08:26)
[2017-10-30] MEDS: VANCOMYCIN 1GM/NS 250 ML 250 ML IV SCH (09:03)
[2017-10-30] MEDS: HEPARIN SOD (PORCINE) 5,000 UNIT/ML VIAL SC SCH ×2 (09:07→21:12)
[2017-10-30] MEDS ORDERED: SODIUM CHLORIDE 0.9% 1000ML 1,000 ML IV SCH (11:00)
[2017-10-30] MEDS: SODIUM CHLORIDE 0.9% 1000ML 1,000 ML IV SCH ×2 (12:09→19:07)
[2017-10-30] MEDS: BALSAM PERU/CASTOR OIL 60 GM OINT...G. TP SCH (14:15)
[2017-10-30 17:09] LABS: ABG HCO3 29 mmol/L (23-28); ABG PCO2 54 mmHg (41-51); ABG PH 7.34 (7.31-7.41); ABG PO2 64 mmHg (80-105)
[2017-10-31] VITALS (97 sets, daily range): BP systolic 105–194; BP diastolic 53–132
[2017-10-31] MEDS: MIDAZOLAM HCL 25 MG in SODIUM CHLORIDE 0.9% 50ML 45 ML IV PRN ×2 (00:47→21:03)
[2017-10-31] MEDS: ALBUTEROL/IPRATROPIUM 3 ML NEB NEB PRN (03:20)
[2017-10-31] MEDS: SODIUM CHLORIDE 0.9% 1000ML 1,000 ML IV SCH ×3 (03:33→19:11)
[2017-10-31] MEDS: HYDROMORPHONE 100 ML IV PRN (04:37)
[2017-10-31] MEDS: PIPER-TAZ 3.375 GM 50 ML IV SCH ×3 (05:05→21:03)
[2017-10-31] MEDS: LEVOTHYROXINE SODIUM 100 MCG TAB PO SCH (05:05)
[2017-10-31] MEDS: INSULIN REGULAR, HUMAN 100 UNIT/1 ML 3ML VIAL SQ SCH ×4 (05:05→23:41)
[2017-10-31 05:51] LABS: BASOPHILS % 0.3 % (0.0-1.0); EOSINOPHILS # (AUTO) 0.1 (0.0-0.4); EOSINOPHILS % 1.2 % (0.0-6.0); HEMATOCRIT 38.4 % (38.2-49.6); HEMOGLOBIN 11.9 g/dL (14.0-18.0); LYMPHOCYTES # (AUTO) 1.2 (1.0-3.2); LYMPHOCYTES % 11.8 % (18.0-39.1); MEAN CORPUSCULAR HEMOGLOBIN 28.7 pg (28-32); MEAN CORPUSCULAR VOLUME 92.8 fL (81-99); MONOCYTES # (AUTO) 0.7 (0.2-0.8); MONOCYTES % 7.6 % (4.4-11.3); NEUTROPHILS # (AUTO) 7.7 (2.1-6.9); NEUTROPHILS % 78.6 % (38.7-80.0); PLATELET COUNT 163 x10e3/uL (140-360); RED BLOOD COUNT 4.14 x10e6/uL (4.3-5.7); RED CELL DISTRIBUTION WIDTH 15.7 % (11.7-14.4)
[2017-10-31 06:11] LABS: ANION GAP 14.5 mmol/L (8-16); CALCIUM 8.7 mg/dL (8.4-10.2); CREATININE, SERUM 2.62 mg/dL (0.72-1.25); POTASSIUM 4.5 mmol/L (3.5-5.1)
--- NOTE | 2017-10-31 06:46 | Diagnostic Imaging Report ---
EXAM: CHEST SINGLE (PORTABLE), AP 1 view INDICATION: Intubated COMPARISON: AP view of the chest November 03, 2017 FINDINGS: LINES/TUBES: Endotracheal tube terminates 5 cm above the kelli. Nasal/orogastric tube is not visualized. LUNGS: Likely pulmonary edema and bibasilar atelectasis. PLEURA: Indeterminate for bilateral layering pleural effusions. HEART AND MEDIASTINUM: Stable appearance. BONES AND SOFT TISSUES: No acute findings. IMPRESSION: Stable appearance of the heart and lungs. Signed by: Dr. Maris Ramos M.D. on 10/31/2017 6:43 AM
[2017-10-31] MEDS: BALSAM PERU/CASTOR OIL 60 GM OINT...G. TP SCH (08:00)
[2017-10-31 10:13] LABS: ABG HCO3 30 mmol/L (23-28); ABG PCO2 64 mmHg (41-51); ABG PH 7.27 (7.31-7.41); ABG PO2 72 mmHg (80-105)
[2017-10-31] MEDS: HEPARIN SOD (PORCINE) 5,000 UNIT/ML VIAL SC SCH ×2 (10:40→20:48)
[2017-10-31] MEDS ORDERED: MIDAZOLAM HCL 2 MG/2 ML VIAL IV PRN (11:45)
[2017-10-31] MEDS: VANCOMYCIN 1GM/NS 250 ML 250 ML IV SCH (13:54)
[2017-10-31] MEDS: ALBUTEROL/IPRATROPIUM 3 ML NEB NEB SCH ×3 (14:55→23:10)
[2017-10-31] MEDS: THEOPHYLLINE 200 MG TABCR PO SCH ×2 (17:00→18:22)
[2017-10-31] MEDS: PANTOPRAZOLE 40 MG 10ML VIAL IV SCH (18:22)
--- NOTE | 2017-10-31 19:36 | Diagnostic Imaging Report ---
EXAM: ABDOMEN-1VIEW (KUB), supine INDICATION: OG-tube placement COMPARISON: AP view of the chest October 11018 FINDINGS: See impression IMPRESSION: The orogastric tube tip is in expected location of the fundus of the stomach. Signed by: Dr. Maris Ramos M.D. on 10/31/2017 7:32 PM
[2017-10-31] MEDS: METHYLPREDNISOLONE SOD SUCC 40 MG/ML VIAL IV SCH (20:45)
[2017-11-01] VITALS (84 sets, daily range): BP systolic 117–237; BP diastolic 53–144
[2017-11-01] MEDS: MIDAZOLAM HCL 25 MG in SODIUM CHLORIDE 0.9% 50ML 45 ML IV PRN ×3 (00:12→04:12)
[2017-11-01] MEDS: ALBUTEROL/IPRATROPIUM 3 ML NEB NEB SCH ×6 (02:05→23:00)
[2017-11-01] MEDS: SODIUM CHLORIDE 0.9% 1000ML 1,000 ML IV SCH ×3 (02:14→19:44)
[2017-11-01] MEDS: PIPER-TAZ 3.375 GM 50 ML IV SCH ×3 (05:21→21:42)
[2017-11-01] MEDS: LEVOTHYROXINE SODIUM 100 MCG TAB PO SCH (05:21)
[2017-11-01] MEDS: INSULIN REGULAR, HUMAN 100 UNIT/1 ML 3ML VIAL SQ SCH ×3 (05:22→18:44)
[2017-11-01] MEDS: HALOPERIDOL LACTATE 5 MG/ML VIAL IV PRN ×2 (07:20→19:20)
[2017-11-01] MEDS: VANCOMYCIN 1GM/NS 250 ML 250 ML IV SCH (09:26)
[2017-11-01] MEDS: BALSAM PERU/CASTOR OIL 60 GM OINT...G. TP SCH (09:26)
[2017-11-01] MEDS: PANTOPRAZOLE 40 MG 10ML VIAL IV SCH (09:26)
[2017-11-01] MEDS: THEOPHYLLINE 200 MG TABCR PO SCH ×2 (09:26→16:50)
[2017-11-01] MEDS: METHYLPREDNISOLONE SOD SUCC 40 MG/ML VIAL IV SCH ×2 (09:26→21:42)
[2017-11-01] MEDS: HEPARIN SOD (PORCINE) 5,000 UNIT/ML VIAL SC SCH ×2 (09:30→21:43)
[2017-11-01 12:39] LABS: ABG HCO3 26 mmol/L (23-28); ABG PCO2 52 mmHg (41-51); ABG PH 7.31 (7.31-7.41); ABG PO2 80 mmHg (80-105)
[2017-11-01 16:22] LABS: ABG HCO3 26 mmol/L (23-28); ABG PCO2 55 mmHg (41-51); ABG PH 7.29 (7.31-7.41); ABG PO2 87 mmHg (80-105)
[2017-11-01] MEDS ORDERED: HYDRALAZINE HCL 20 MG/ML VIAL IV PRN (17:30)
[2017-11-01] MEDS ORDERED: ETOMIDATE 40 MG/ 20ML VIAL IV ONE (18:13)
[2017-11-01] MEDS ORDERED: SUCCINYLCHOLINE CHLORIDE 20 MG/ML 10ML VIAL ONE (18:13)
[2017-11-01] MEDS ORDERED: ATROPINE SULFATE 0.1 MG/ML 10ML SYR ONE (18:14)
[2017-11-01] MEDS ORDERED: EPINEPHRINE HCL SYRINGE ONE (18:14)
[2017-11-01] MEDS ORDERED: EPINEPHRINE HCL INJ 1 MG/ML AMP ONE (18:31)
[2017-11-01] MEDS: METOPROLOL TARTRATE INJ 1 MG/ML VIAL IV PRN ×2 (18:32→21:42)
[2017-11-01] MEDS ORDERED: HALOPERIDOL LACTATE 5 MG/ML VIAL ONE (19:12)
[2017-11-01] MEDS ORDERED: LORAZEPAM INJ 2 MG/ML VIAL IV PRN (19:15)
[2017-11-01] MEDS ORDERED: LIDOCAINE HCL 2% 30 ML TUBE TOP PRN (20:00)
[2017-11-01] MEDS ORDERED: LIDOCAINE HCL 2% JELLY 5 ML TUBE TOP PRN (20:00)
[2017-11-01] MEDS ORDERED: LIDOCAINE JELLY 2% 10ML URO-JET TOP PRN (20:00)
[2017-11-01] MEDS ORDERED: THEOPHYLLINE 200 MG TABCR PO SCH (21:00)
[2017-11-01] MEDS ORDERED: PROPOFOL IV EMULSION 10MG/ML 100 ML ONE (22:42)
--- NOTE | 2017-12-11 02:16 | Discharge Summary ---
SUMMARY secondary to respiratory failure, obstructive sleep apnea, noncompliance. HISTORY OF PRESENT ILLNESS AND HOSPITAL COURSE: See hospital chart since this discharge summary is not all encompassing. Patient is a 62-year-old severely noncompliant patient, who has a history of uncontrolled diabetes, chronic hypercapnic respiratory failure with a high pCO2, who has a history of diabetes, hypertension, sleep apnea, and CHF, which according to the family he is very noncompliant with wearing his BiPAP as well as taking care of his medications at home. He was brought in with respiratory failure, hypercapnic failure, showing evidence of right lower lobe pneumonia, so he was brought in and seen by pulmonary, placed on IV antibiotics. Patient had rapid response because of increased combativeness and worsening respiratory status, so then patient was intubated. He was also seen by cardiology for CHF. Due to his history of noncompliance and severe medical conditions, patient overall had a very poor prognosis from the very beginning. He did spike some evidence of fever, so he was placed on broad-spectrum antibiotics. Echo showed an EF of 55%. Patient did unfortunately while he was on vent self extubated himself and while he became hypercapnic and combative again, which required re-intubation when he was not able to tolerate the BiPAP. Chance of tracheostomy definitely was increasing due to his overall poor prognosis which family was aware of. Unfortunately, patient self extubated himself again and when rapid response called and while they were getting ready to re-intubate the patient, he went into asystole, code blue, and ACLS was initiated. Unfortunately, patient did not make it and he was pronounced at 2310 hours. Please see hospital chart for full details since this discharge summary is not all encompassing. LATRICE GOTTI MD Job#: [id number]
== END 2017-11-01 23:10 | disposition expired | DRG 870 ==
LOC: ER 14:29 → ERHOLD 16:42 → ICU 17:29
PROVIDERS: ADMIT Internal Medicine; ATTEND Internal Medicine
PROC: 5A1955Z Respiratory Ventilation, Greater than 96 Consecutive Hours (ICD-10-PCS; principal; 2017-10-27)
PROC: 0BH17EZ Insertion of Endotracheal Airway into Trachea, Via Natural or Artificial Opening (ICD-10-PCS; principal; 2017-10-27)
DX: A41.9 Sepsis, unspecified organism (principal); J96.22 Acute and chronic respiratory failure with hypercapnia; J69.0 Pneumonitis due to inhalation of food and vomit; G93.40 Encephalopathy, unspecified; I13.0 Hypertensive heart and chronic kidney disease with heart failure and stage 1 through stage 4 chronic kidney disease, or unspecified chronic kidney disease; N17.9 Acute kidney failure, unspecified; E87.2 Acidosis; I50.30 Unspecified diastolic (congestive) heart failure; J44.1 Chronic obstructive pulmonary disease with (acute) exacerbation; Z68.43 Body mass index [BMI] 50.0-59.9, adult; R65.20 Severe sepsis without septic shock; L89.152 Pressure ulcer of sacral region, stage 2; N18.3 Chronic kidney disease, stage 3 (moderate); E11.65 Type 2 diabetes mellitus with hyperglycemia; E78.5 Hyperlipidemia, unspecified; Z91.19 Patient's noncompliance with other medical treatment and regimen; E03.9 Hypothyroidism, unspecified; E66.01 Morbid (severe) obesity due to excess calories; I25.2 Old myocardial infarction; Z88.0 Allergy status to penicillin; Z88.8 Allergy status to other drugs, medicaments and biological substances; Z79.4 Long term (current) use of insulin; G47.33 Obstructive sleep apnea (adult) (pediatric); Z87.891 Personal history of nicotine dependence; E11.22 Type 2 diabetes mellitus with diabetic chronic kidney disease; D64.9 Anemia, unspecified; L89.620 Pressure ulcer of left heel, unstageable; L89.610 Pressure ulcer of right heel, unstageable
CPT/HCPCS: 36415; 36569; 36600; 70450; 71045; 74018; 80048; 80053; 80061; 80202; 80307; 82550; 82553; 82805; 82948; 83036; 83605; 83735; 83880; 84100; 84443; 84484; 85007; 85025; 85027; 85610; 85730; 87040; 87070; 87071; 87205; 87400; 92950; 93005; 93306; 94002; 94003; 94640; 94660; 96372; 99285; J0171; J0330; J0360; J1630; J1644; J1940; J2060; J2250; J2310; J2543; J2920; J3370; J7030; J7050